=== PATIENT | male | born 1960 | race Caucasian/White ===

== ENCOUNTER 2019-01-03 14:02 | Emergency (ER) | payer BC ==
--- NOTE | 2019-01-03 14:17 | EDM.PDOC ---
ED HPI GENERAL MEDICAL PROBLEM - General Stated Complaint: BLOOD IN STOOL Time Seen by Provider: 01/03/19 14:02 Source of Information: Reports: Patient, Family History Limitations: Reports: No Limitations - History of Present Illness INITIAL COMMENTS - FREE TEXT/NARRATIVE: 58 y.o.w.m with a H/O asthma, came to the ed with his SO due to blood in stool. This am he had a BM with hard stool and blood on top of stool, then, the soll got more soft. When the pt arrived here in the ED he passed bright red blood per rectum, small amount, without stool. No N/V no dizziness or light headedness. Never had a colonoscopy in the past. Brother had skin CA and his son had scrotal CA. Pt felt some discomfort at his suprapubic area when defecating. No Dysuria. No other acute medical issues. BP 139/81 Temp 37.1 RR 18 Pulse ox 97% on RA Pulse 84. Onset Date: 01/03/19 Onset Time: 07:00 Duration: Hour(s):, Intermittent Location: Reports: Abdomen Quality: Reports: Dull Severity: Mild Improves with: Reports: None Worsens with: Reports: None Context: Reports: Other Associated Symptoms: Reports: No Other Symptoms mid low abd pain Pain Score (Numeric/FACES): 2 - Related Data Allergies Allergy/AdvReac Type Severity Reaction Status Date / Time No Known Allergies Allergy Verified 01/03/19 14:25 Home Meds: Home Meds NK [No Known Home Meds] 01/03/19 [History] ED ROS GENERAL - Review of Systems Review Of Systems: See Below Constitutional: Reports: No Symptoms HEENT: Reports: No Symptoms Respiratory: Reports: No Symptoms Cardiovascular: Reports: No Symptoms Endocrine: Reports: No Symptoms GI/Abdominal: Reports: Hematochezia : Reports: No Symptoms Musculoskeletal: Reports: No Symptoms Skin: Reports: No Symptoms Neurological: Reports: No Symptoms Psychiatric: Reports: No Symptoms Hematologic/Lymphatic: Reports: No Symptoms Immunologic: Reports: No Symptoms ED EXAM, GI/ABD - Physical Exam Exam: See Below Exam Limited By: No Limitations General Appearance: Alert, WD/WN, Mild Distress Eyes: Bilateral: Normal Appearance Ears: Normal External Exam Nose: Normal Inspection Throat/Mouth: Normal Inspection, Normal Lips, Normal Voice, No Airway Compromise Head: Atraumatic, Normocephalic Neck: Normal Inspection, Supple, Non-Tender Respiratory/Chest: Wheezing (expiratory, refused Alb nebs here in the ed) Cardiovascular: Normal Peripheral Pulses, Regular Rate, Rhythm, No Edema, No Gallop, No JVD GI/Abdominal Exam: Normal Bowel Sounds, Soft, Tender (suprapubic) (Male) Exam: No Hernia Rectal (Males) Exam: Heme + Stool Back Exam: Normal Inspection, Full Range of Motion Extremities: Normal Inspection, Normal Range of Motion, Non-Tender Neurological: Alert, Oriented, CN II-XII Intact, Normal Cognition, Normal Gait Psychiatric: Normal Affect, Normal Mood Skin Exam: Warm, Dry, Intact, Normal Color, No Rash Lymphatic: No Adenopathy Course - Vital Signs Text/Narrative:: 58 y.o.w.m with a H/O asthma, came to the ed with his SO due to blood in stool. This am he had a BM with hard stool and blood on top of stool, then, the soll got more soft. When the pt arrived here in the ED he passed bright red blood per rectum, small amount, without stool. No N/V no dizziness or light headedness. Never had a colonoscopy in the past. Brother had skin CA and his son had scrotal CA. Pt felt some discomfort at his suprapubic area when defecating. No Dysuria. No other acute medical issues. BP 139/81 Temp 37.1 RR 18 Pulse ox 97% on RA Pulse 84. PE: WNWD w m with hematochezia and exp wheezing (refused DuoNeb, has meds at home he said) Labs: CBC, BMP, UA neg Quiac pos brown stool. Impression: Hematochezia Reexam: pt did fine in the ED, refused albuterol Tx 3.50 pm Consultation: Dr. Holcomb, Surgeon: can see the pt this Friday at the clinic at 10 am to be scheduled for a colonoscopy. Plan: D/C with instructions Last Recorded V/S: Last Vital Signs Temp 37.0 C 01/03/19 16:04 Pulse 67 01/03/19 16:04 Resp 17 01/03/19 16:04 BP 160/77 H 01/03/19 16:04 Pulse Ox 98 01/03/19 16:04 - Orders/Labs/Meds Orders: Active Orders 24 hr Category Date Time Status H. PYLORI STOOL AG, EIA Routine Lab 01/03/19 14:13 Received STOOL CULTURE Routine Lab 01/03/19 14:13 Received WHITE BLOOD CELLS (WBC), STOOL Routine Lab 01/03/19 14:13 Received Labs: Laboratory Tests 01/03/19 01/03/19 01/03/19 Range/Units 14:13 14:18 14:18 WBC 9.6 (4.5-12.0) X10-3/uL RBC 5.25 (4.30-5.75) x10(6)uL Hgb 15.3 (13.5-17.8) g/dL Hct 44.8 (30.0-51.3) % MCV 85.4 (80-96) fL MCH 29.2 (27.7-33.6) pg MCHC 34.2 (32.2-35.4) g/dL RDW 12.6 (11.5-15.5) % Plt Count 225 (125-369) X10(3)uL MPV 7.7 (7.4-10.4) fL Neut % (Auto) 83.2 H (46-82) % Lymph % (Auto) 11.2 L (13-37) % [place] % (Auto) 3.5 L (4-12) % Eos % (Auto) 1 (1.0-5.0) % Baso % (Auto) 1 (0-2) % Neut # (Auto) 8.0 (1.6-8.3) # Lymph # (Auto) 1.1 (0.6-5.0) # [place] # (Auto) 0.3 (0.0-1.3) # Eos # (Auto) 0.1 (0.0-0.8) # Baso # (Auto) 0.1 (0.0-0.2) # PT 9.5 (8.7-11.1) INR 0.98 (0.89-1.13) Sodium (135-145) mmol/L Potassium (3.5-5.3) mmol/L Chloride (100-110) mmol/L Carbon Dioxide (21-32) mmol/L BUN (7-18) mg/dL Creatinine (0.70-1.30) mg/dL Est Cr Clr Drug Dosing mL/min Estimated GFR (MDRD) (>60) BUN/Creatinine Ratio (9-20) Glucose (80-116) mg/dL Calcium (8.6-10.2) mg/dL Urine Color Yellow (YELLOW) Urine Appearance Slightly cloudy (CLEAR) Urine pH 8.0 H (5.0-6.5) Ur Specific [place] 1.015 (1.010-1.025) Urine Protein Negative (NEGATIVE) mg/dL Urine Glucose (UA) Normal (NORMAL) mg/dL Urine Ketones Negative (NEGATIVE) mg/dL Urine Occult Blood Negative (NEGATIVE) Urine Nitrite Negative (NEGATIVE) Urine Bilirubin Negative (NEGATIVE) Urine Urobilinogen Normal (NEGATIVE) mg/dL Ur Leukocyte Esterase Negative (NEGATIVE) Urine RBC 0-5 (0-5) Urine WBC 0-5 (0-5) Ur Squamous Epith Cells Few H (NS,R,O) Amorphous Sediment Moderate Urine Bacteria Moderate H (NS) 01/03/19 Range/Units 14:18 WBC (4.5-12.0) X10-3/uL RBC (4.30-5.75) x10(6)uL Hgb (13.5-17.8) g/dL Hct (30.0-51.3) % MCV (80-96) fL MCH (27.7-33.6) pg MCHC (32.2-35.4) g/dL RDW (11.5-15.5) % Plt Count (125-369) X10(3)uL MPV (7.4-10.4) fL Neut % (Auto) (46-82) % Lymph % (Auto) (13-37) % [place] % (Auto) (4-12) % Eos % (Auto) (1.0-5.0) % Baso % (Auto) (0-2) % Neut # (Auto) (1.6-8.3) # Lymph # (Auto) (0.6-5.0) # [place] # (Auto) (0.0-1.3) # Eos # (Auto) (0.0-0.8) # Baso # (Auto) (0.0-0.2) # PT (8.7-11.1) INR (0.89-1.13) Sodium 141 (135-145) mmol/L Potassium 3.9 (3.5-5.3) mmol/L Chloride 104 (100-110) mmol/L Carbon Dioxide 26 (21-32) mmol/L BUN 10 (7-18) mg/dL Creatinine 1.0 (0.70-1.30) mg/dL Est Cr Clr Drug Dosing 82.48 mL/min Estimated GFR (MDRD) > 60 (>60) BUN/Creatinine Ratio 10.0 (9-20) Glucose 104 (80-116) mg/dL Calcium 9.2 (8.6-10.2) mg/dL Urine Color (YELLOW) Urine Appearance (CLEAR) Urine pH (5.0-6.5) Ur Specific [place] (1.010-1.025) Urine Protein (NEGATIVE) mg/dL Urine Glucose (UA) (NORMAL) mg/dL Urine Ketones (NEGATIVE) mg/dL Urine Occult Blood (NEGATIVE) Urine Nitrite (NEGATIVE) Urine Bilirubin (NEGATIVE) Urine Urobilinogen (NEGATIVE) mg/dL Ur Leukocyte Esterase (NEGATIVE) Urine RBC (0-5) Urine WBC (0-5) Ur Squamous Epith Cells (NS,R,O) Amorphous Sediment Urine Bacteria (NS) Departure - Departure Time of Disposition: 15:51 Disposition: Home, Self-Care 01 Condition: Good Clinical Impression: Hematochezia - Discharge Information Instructions: Bloody Diarrhea Referrals: Gerson Wynn PA-C [Primary Care Provider] - Fede Holcomb MD [Physician] - Forms: ED Department Discharge Additional Instructions: Please do not eat anything after mid night. Please F/U with Dr. Holcomb, GI, [phone] at 10 am this Friday at his clinic. Please see address and phone number above. Please come back if to the ED your symptoms get worse acutely. - My Orders Last 24 Hours: My Active Orders 01/03/19 14:13 H. PYLORI STOOL AG, EIA Routine STOOL CULTURE Routine WHITE BLOOD CELLS (WBC), STOOL Routine - Assessment/Plan Last 24 Hours: My Active Orders 01/03/19 14:13 H. PYLORI STOOL AG, EIA Routine STOOL CULTURE Routine WHITE BLOOD CELLS (WBC), STOOL Routine
== END 2019-01-03 16:08 | disposition home or self-care (01) ==
LOC: FB.ED 14:02
DX: K92.1 Melena (principal)
CPT/HCPCS: 36415; 80048; 81001; 82272; 85025; 85610; 87045; 87046; 87338; 87427; 89055; 99284